=== PATIENT | female | born 1985 | race Two or more races ===

== ENCOUNTER 2018-12-25 16:23 | Day surgery (SDC) | payer OTHER ==
[~2018-12-25] VITALS: Ht 165.1 cm; Wt 79.9 kg
[2018-12-25] MEDS ORDERED: MORPHINE 2 MG/ML 1ML VIAL (J2270) IV ONE ×2 (17:00→20:15)
[2018-12-25] MEDS ORDERED: ONDANSETRON 4MG/2ML VIAL (J2405) IV ONE ×2 (17:00→20:15)
[2018-12-25] MEDS ORDERED: NS 1,000 ML IV ONE (17:15)
[2018-12-25 17:26] LABS: BASO % 0.2 % (0.0-1.0); EOS # 0.1 10^3/uL (0.0-0.5); EOS % 0.4 % (0.0-3.0); HEMATOCRIT 41.7 % (36.0-47.0); HEMOGLOBIN 14.6 g/dl (12.0-15.5); LYMPH # 1.2 10^3/uL (1.5-5.0); LYMPH % 9.3 % (24.0-44.0); MEAN CORPUSCULAR HEMOGLOBIN 32.6 pg (27.0-33.0); MEAN CORPUSCULAR VOLUME 93.1 fl (80.0-96.0); MONO # 0.8 10^3/uL (0.0-0.8); MONO % 6.1 % (0.0-5.0); NEUTROPHILS # 10.9 10^3/uL (1.5-8.5); NEUTROPHILS % 83.7 % (36.0-66.0); PLATELET COUNT, AUTOMATED 236 10^3/uL (150-450); RED BLOOD COUNT 4.48 10^6/uL (4.00-5.40)
[2018-12-25 17:47] LABS: ALBUMIN 4.1 GM/DL (3.2-5.2); BILIRUBIN,DIRECT 0.1 MG/DL (0.0-0.2); BILIRUBIN,TOTAL 0.5 MG/DL (0.2-1.0); TOTAL PROTEIN 7.4 GM/DL (6.4-8.2)
[2018-12-25] MEDS ORDERED: ISOVUE-370 76% 100ML VIAL (Q9967) As Ordered ONE (17:52)
--- NOTE | 2018-12-25 19:31 | REPVR ---
PROCEDURE INFORMATION: Exam: CT Abdomen And Pelvis With Contrast Exam date and time: 12/25/2018 6:13 PM Clinical history: 33 years old, female; Abdominal pain; Localized; Left lower quadrant (llq); Additional info: Rlq pain with n/v R/O appendicitis TECHNIQUE: Imaging protocol: Computed tomography of the abdomen and pelvis with intravenous contrast. Radiation optimization: All CT scans at this facility use at least one of these dose optimization techniques: automated exposure control; mA and/or kV adjustment per patient size (includes targeted exams where dose is matched to clinical indication); or iterative reconstruction. Contrast material: ISOVUE 370; Contrast volume: 100 ml; Contrast route: IV; COMPARISON: No relevant prior studies available. FINDINGS: Lungs: Mild bibasilar atelectasis. Liver: Normal. No mass. Gallbladder and bile ducts: No calcified stones. No ductal dilation. Pancreas: Normal. No ductal dilation. Spleen: Normal. No splenomegaly. Adrenals: Normal. No mass. Kidneys and ureters: No hydronephrosis. No urolithiasis. Stomach and bowel: Mild thickening of the decker of the transverse colon. No pneumatosis. No evidence of obstruction. Appendix: The appendix measures up to 10 mm in diameter, with adjacent fat stranding. Intraperitoneal space: No free air. No significant fluid collection. Vasculature: No abdominal aortic aneurysm. Lymph nodes: No enlarged lymph nodes. Bladder: Unremarkable. Reproductive: IUD in the uterus. Bones/joints: Unremarkable. No acute fracture. Soft tissues: Unremarkable. IMPRESSION: 1. Findings consistent with acute unruptured appendicitis. 2. Mild thickening of the decker of the transverse colon, which could be due to under distention or colitis. Electronically signed by: Ricky Cooper On 12/25/2018 19:30:44 PM
[2018-12-25] MEDS ORDERED: PIPERACILLIN/TAZOBACTAM SOD 3.375 GM in D5W MINI-BAG PLUS 50 ML IV ONE (20:00)
[2018-12-25] MEDS ORDERED: LR 1,000 ML IV ONE (20:00)
[2018-12-25] MEDS ORDERED: ONDANSETRON 4MG/2ML VIAL (J2405) As Ordered ONE (20:28)
[2018-12-25] MEDS ORDERED: PROPOFOL 200 MG/20 ML VIAL As Ordered ONE (20:28)
[2018-12-25] MEDS ORDERED: LIDOCAINE 2% INJ 100 MG/5 ML SDV (FOR ANES.) As Ordered ONE (20:28)
[2018-12-25] MEDS ORDERED: dexameTHASONE 4 MG/ML 1ML VIAL (J1100) As Ordered ONE (20:28)
[2018-12-25] MEDS ORDERED: ROCURONIUM BROMIDE 50 MG/5 ML VIAL As Ordered ONE (20:28)
[2018-12-25] MEDS ORDERED: fentaNYL 250 MCG/5 ML INJECTION (J3010) As Ordered ONE (20:30)
[2018-12-25] MEDS ORDERED: MIDAZOLAM INJ 2 MG/2 ML VIAL (J2250) As Ordered ONE (20:31)
[2018-12-25] MEDS ORDERED: BUPIVACAINE HCL 0.25% 30 ML VIAL As Ordered ONE (20:34)
[2018-12-25] MEDS ORDERED: LIDOCAINE 1% SDV INJ 30 ML VIAL As Ordered ONE (20:34)
--- NOTE | 2018-12-25 20:37 | HPEPDOC ---
General Surgery H&P Date of Admission Dec 25, 2018 Attending Physician: OMAYRA CHAVIRA MD History and Physical CHIEF COMPLAINT: abdominal pain HISTORY OF PRESENT ILLNESS: Patient presents to the emergency room today with 1 day history of right sided abdominal discomfort that started abruptly this morning with progression of pain and increase in severity accompanied by nausea and 1 episode of vomiting. She reports normal bowel movement today. She denies any sick contacts or prior episodes of similar symptoms. Patient reports pain abruptly started at 12 noon today. This progressed through the course of the day. In the ER she was evaluated and was found to have evidence for acute appendicitis. ALLERGIES: Please see below. HOME MEDICATIONS: Please see below. PAST MEDICAL HISTORY: 1. Denies any chronic medical problems PAST SURGICAL HISTORY: 1. section 2 2. Knee surgery PERSONAL/SOCIAL HISTORY: Denies smoking, alcohol use, or recreational drug use. REVIEW OF SYSTEMS: GENERAL: Symptoms are of few hours duration. 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 HEENT: Denies blurred vision and double vision. Denies ear symptoms. Denies h oarseness. NECK: Denies any neck pain. CARDIOVASCULAR: Denies chest pain and palpitations. MUSCULOSKELETAL: Denies arthralgias, back pain and thrombophlebitis. SKIN: Denies rash. NEUROLOGIC: Denies headache, stroke and transient ischemic attack. PSYCHIATRIC: Denies anxiety and depression. HEMATOLOGY/ONCOLOGY: Denies any bleeding or clotting disorder. HEART: Denies any chest pains, palpitations, paroxysmal dyspnea, orthopnea. PULMONARY: Denies chronic cough, dyspnea and wheezing. GASTROINTESTINAL: Denies rectal bleeding, family history of colon cancer, constipation, diarrhea, dysphagia, heartburn and jaundice. GENITOURINARY: Denies dysuria, frequency, hematuria and nocturia. ENDOCRINE: Denies polydipsia, polyphagia, polyuria, heat or cold intolerance. INFECTIOUS: Denies any recent upper respiratory tract infection, UTI, need for use of antibiotics. NUTRITION: Reports fair appetite PHYSICAL EXAMINATION: VITAL SIGNS: Please see below. GENERAL APPEARANCE: Patient only minimally uncomfortable when laying down reports increased discomfort with moving around. Awake, alert, oriented. HEENT: Normocephalic, atraumatic. [place] palpebral conjunctivae. Anicteric sclerae. Lips moist. CHEST: No chest wall abnormalities. Normal respiratory motion/effort. NECK: Supple. No thyromegaly. No lymphadenopathies. LUNGS: Lung sounds are clear to auscultation bilaterally. No wheezing appreciated. HEART: No chest wall abnormalities. Heart rate and rhythm are regular with no murmurs. ABDOMEN: Slightly rounded, nondistended abdomen. I then instilled incision fully healed without any incisional hernia. No umbilical or groin herniation. She is tender on palpation over the right lower quadrant area with mild guarding. SKIN: Warm, moist. EXTREMITIES: Extremities have no deformities. No edema identified. NEUROLOGICAL: Awake, alert, oriented ANCILLARIES: . LABORATORY DATA: Please see below. MICROBIOLOGY: Please see below. IMAGING: CT abdomen and pelvis 1. Findings consistent with acute unruptured appendicitis. 2. Mild thickening of the decker of the transverse colon, which could be due to under distention or colitis. IMPRESSION AND PLAN: Acute appendicitis with localized peritonitis Patient's history is consistent with acute appendicitis. Examination shows tenderness on the right lower quadrant area consistent with the impression of acute appendicitis. No signs of rupture or abscess on CT. I think it is appropriate to bring her to the operating room for laparoscopic appendectomy. She received a dose of Zosyn 3.375 g IV in the emergency room which should be sufficient and adequate to cover for bacterial organisms involved with acute appendicitis that appears non-complicated on CT. Anticipate bring her to the operating room soon as the operating room is available and she will stay in the hospital overnight. I usually continue the antibiotics up until to the morning and if determined stable in the morning should be able to go home. Vital Signs Vital Signs Date Time Temp Pulse Resp B/P (MAP) Pulse Ox O2 Delivery O2 Flow Rate FiO2 12/25/18 17:49 14 12/25/18 16:32 12/25/18 16:24 97.3 96 96 Room Air Laboratory Data Labs 24H Laboratory Tests 2 12/25/18 17:07: Immature Granulocyte % (Auto) 0.3, Neutrophils (%) (Auto) 83.7H, Lymphocytes (%) (Auto) 9.3L, Monocytes (%) (Auto) 6.1H, Eosinophils (%) (Auto) 0.4, Basophils (%) (Auto) 0.2, Neutrophils # (Auto) 10.9H, Lymphocytes # (Auto) 1.2L, Monocytes # (Auto) 0.8, Eosinophils # (Auto) 0.1, Basophils # (Auto) 0.0, Nucleated Red Blood Cells % (auto) 0.0, Total Bilirubin 0.5, Direct Bilirubin 0.1, Aspartate Amino Transf (AST/SGOT) 17, Alanine Aminotransferase (ALT/SGPT) 28, Alkaline Phosphatase 64, Total Protein 7.4, Albumin 4.1, Albumin/Globulin Ratio 1.24, Lipase 109 12/25/18 17:17: POC Beta HCG, Quantitative < 5.0 12/25/18 17:39: POC Glucose (Misc Panel) 90, POC Sodium (Misc Panel) 141, POC Potassium (Misc Panel) 3.8, POC Chloride (Misc Panel) 103, POC Total CO2 (Misc Panel) 24.0, POC Blood Urea Nitrogen (Misc Panel 15, POC Ionized Calcium (Misc Panel) 4.7, POC Creatinine (Misc Panel) 0.7, POC Hematocrit (Misc Panel) 60.0H 12/25/18 18:53: Urine Color YELLOW, Urine Appearance CLEAR, Urine pH 6.0, Urine Specific [place] >1.060H, Urine Protein NEGATIVE, Urine Glucose (UA) NEGATIVE, Urine Ketones 1+H, Urine Blood 1+H, Urine Nitrite NEGATIVE, Urine Bilirubin NEGATIVE, Urine Urobilinogen 2.0H, Urine Leukocyte Esterase TRACEH, Urine WBC (Auto) 3, Urine RBC (Auto) 9H, Urine Hyaline Casts (Auto) 0, Urine Bacteria (Auto) 1+H, Urine Squamous Epithelial Cells 5, Urine Mucus (Auto) SMALL, Urine Sperm (Auto) CBC/BMP Laboratory Tests 12/25/18 17:07 Microbiology Microbiology 12/25/18 Urine Culture, Received Pending Home Medications No Active Prescriptions or Reported Meds Allergies Coded Allergies: No Known Allergies (Unverified , 12/25/18) A-FIB/CHADSVASC A-FIB History Current/History of A-Fib/PAF?: No Current PO Anticoag Therapy: No OMAYRA CHAVIRA MD Dec 25, 2018 20:37
[2018-12-25] MEDS ORDERED: ACETAMINOPHEN 1000MG 100ML IV BTL (OFIRMEV) (J0131 PER 10MG) As Ordered ONE (21:22)
[2018-12-25] MEDS ORDERED: KETOROLAC 60 MG/2 ML VIAL (J1885) As Ordered ONE (21:28)
[2018-12-25] MEDS ORDERED: SUGAMMADEX SODIUM 500 MG/5 ML VIAL (BRIDION) As Ordered ONE (21:28)
[2018-12-25] MEDS ORDERED: LR 1,000 ML IV SCH ×2 (21:54→22:15)
[2018-12-25] MEDS ORDERED: ONDANSETRON 4MG/2ML VIAL (J2405) IV PRN ×2 (22:00→22:15)
[2018-12-25] MEDS ORDERED: PERCOCET 5MG/325MG TAB PO PRN ×3 (22:00→22:15)
--- NOTE | 2018-12-25 22:06 | ROOPDOC ---
[facility] Report Of Operation Report of Operation DATE OF PROCEDURE: 12/25/18 PREPROCEDURE DIAGNOSES: Acute appendicitis. POSTPROCEDURE DIAGNOSES: Acute appendicitis. PROCEDURE: Laparoscopic appendectomy. SURGEON: Antonio Chand MD BENCH MACHINE OPERATOR: Kee Riggins ([facility]) ANESTHESIA: Gen. anesthesia. ESTIMATED BLOOD LOSS: Approximately 10 mL. COMPLICATIONS: None. REMARKS: Healthy 33-year-old female who 1 day history of abdominal pain. PROCEDURE NOTE: Mildly thickened, mildly inflamed appendix without any perforation. Minimal amount of fluid in the right gutter. DESCRIPTION OF PROCEDURE: Patient has been given a dose of Zosyn perioperatively.Patient was brought to the operating room, placed supine on the table. Sequential compression device placed for DVT prophylaxis. General endotracheal anesthesia started. The abdomen prepped and draped in usual sterile fashion. After a surgical timeout, we began our surgery Entry into the abdomen done through an incision above the umbilicus. Veress needle inserted on a controlled fashion. Intra-abdominal placement confirmed with saline drop technique. CO2 insufflation started to a pressure of 15 mmHg. Using the same incision a 8 mm port was placed under direct vision of laparoscop e. Insertion site was inspected for injury and none was found. She was placed on a Trendelenburg position the right side tilted to about 30 to allow for better visualization of the appendix. 2 working ports were placed at the suprapubic area and left lower quadrant area under direct vision. Operative findings: Appendix is noted over the right lower quadrant area, mildly thickened with venous congestion. The mesial appendix is mildly inflamed. Scant amount of slightly murky fluid in the right gutter. The appendix was located, The Surrounding bowels retracted away from the appendix. This was grasped to pull the base of the appendix into view. The mesoappendix was divided using Harmonic scalpel down to the base. Two PDS Endoloops were placed to ligate the appendix at its base then divided with a Harmonic Scalpel the stump cauterized. Stump appears healthy. Appendix was then delivered into an Endo Catch bag. After re-insufflation the surgical site was inspected for hemostasis. Surrounding areas of the abdomen and inspected for fluid collections or signs of injury. A 10 flat MACO drain was left in place close to the abdomen initial stump for monitoring and for drainage of fluid irrigation. The abdomen was deflated. All ports removed. The umbilical fascial defect repaired with 0 Vicryl in a mattress fashion. All skin incisions closed with 4-0 Monocryl in a subcuticular fashion. Steri-Strips and gauze dressing used for wound coverage. Patient was promptly awake and extubated and brought to recovery room stable. All counts of sponges and instruments verified to be correct. . ANTONIO CHAND MD Dec 25, 2018 22:06
[2018-12-25] MEDS ORDERED: fentaNYL 100 MCG/2 ML INJECTION (J3010) IV PRN (22:15)
[2018-12-25] MEDS ORDERED: KETOROLAC 30 MG/ML VIAL (J1885) IV PRN (22:15)
[2018-12-25] MEDS ORDERED: HYDROMORPHONE HCL 0.5 MG/ 0.5 ML SYRINGE (J1170 PER 1) IV PRN (22:15)
[2018-12-25 22:55] VITALS: BP 122/70
[2018-12-25 23:25] VITALS: BP 121/62
[2018-12-25 23:55] VITALS: BP 113/56
[2018-12-26 00:50] VITALS: BP 113/58
[2018-12-26 01:53] VITALS: BP 116/53
[2018-12-26 03:00] VITALS: BP 112/56
[2018-12-26] MEDS: AMPICILLIN SOD/SULBACTAM SOD 3 GM in D5W MINI-BAG PLUS 100 ML IV SCH ×3 (03:06→14:30)
[2018-12-26 04:16] VITALS: BP 109/53
[2018-12-26 07:10] LABS: BASO % 0.3 % (0.0-1.0); HEMATOCRIT 35.5 % (36.0-47.0); LYMPH # 0.8 10^3/uL (1.5-5.0); LYMPH % 9.8 % (24.0-44.0); MEAN CORPUSCULAR HEMOGLOBIN 32.6 pg (27.0-33.0); MEAN CORPUSCULAR HGB CONC 35.2 g/dl (32.0-36.5); MEAN CORPUSCULAR VOLUME 92.7 fl (80.0-96.0); MONO # 0.3 10^3/uL (0.0-0.8); NEUTROPHILS # 6.8 10^3/uL (1.5-8.5); NEUTROPHILS % 85.3 % (36.0-66.0); PLATELET COUNT, AUTOMATED 204 10^3/uL (150-450); RED BLOOD COUNT 3.83 10^6/uL (4.00-5.40)
[2018-12-26 07:14] LABS: HEMOGLOBIN 12.5 g/dl (12.0-15.5)
[2018-12-26 07:40] LABS: BLOOD UREA NITROGEN 9 MG/DL (7-18); CALCIUM LEVEL 8.4 MG/DL (8.5-10.1); CARBON DIOXIDE LEVEL 25 MEQ/L (21-32); CHLORIDE LEVEL 109 MEQ/L (98-107); CREATININE FOR GFR 0.65 MG/DL (0.55-1.30); GLOMERULAR FILTRATION RATE > 60.0 (>60); GLUCOSE, FASTING 107 MG/DL (70-100); SODIUM LEVEL 140 MEQ/L (136-145)
[2018-12-26 08:00] VITALS: BP 118/59
[2018-12-26] MEDS: KETOROLAC 30 MG/ML VIAL (J1885) IV PRN ×2 (08:24→14:40)
[2018-12-26] MEDS ORDERED: SENOKOT S TAB PO SCH (09:00)
[2018-12-26 12:00] VITALS: BP 107/54
[2018-12-26] MEDS ORDERED: PERCOCET PO ×2 (13:02→13:10)
== END 2018-12-26 15:40 | disposition home or self-care (01) ==
LOC: M ED 16:23 → M SDC 20:00 → M PED 22:45 → M SDC 12-26 15:40
PROVIDERS: ATTEND Surgery
DX: K35.890 Other acute appendicitis without perforation or gangrene (principal)
CPT/HCPCS: 36415; 44970; 74177; 80047; 80048; 80076; 81001; 83690; 84702; 85025; 87086; 88304; 96361; 96365; 96366; 96375; 96376; 99284; J0131; J1100; J1885; J2250; J2270; J2405; J2543; J3010; Q9967